=== PATIENT | female | born 1965 | race Caucasian/White ===

== ENCOUNTER → 2023-12-10 11:37 | Outpatient (REF) | payer BC, SELFPAY | LOC: WDC 11:37 | DX: R92.8 Other abnormal and inconclusive findings on diagnostic imaging of breast (principal) | CPT/HCPCS: 77062; 77066 ==

== ENCOUNTER → 2024-05-01 16:34 | Outpatient (REF) | payer BC, SELFPAY | LOC: UCDH 16:34 | PROVIDERS: ATTENDING PHYSICIAN Physician Assistant Medical | DX: R07.81 Pleurodynia (principal) | CPT/HCPCS: 71101 ==

== ENCOUNTER 2024-05-09 15:52 | Emergency (ER) | payer BC, SELFPAY ==
[2024-05-09 16:00] VITALS: BP 148/89
[2024-05-09 16:31] VITALS: BMI 23.7
[2024-05-09] MEDS: NSS 500 IV (17:22)
[2024-05-09 17:38] LABS: % Basophils 0.4 % (0-2); % Eosinophils 0.7 % (0-6); % Immature Granulocytes 0.3 % (0-0.5); % Lymphocytes 25.2 % (20.5-51.1); % Monocytes 7.3 % (1.7-9.3); % Neutrophils 66.1 % (42.2-75.2); Absolute Eosinophils 0.1 10^3/uL (0-0.7); Absolute Lymphocytes 2.6 10^3/uL (1.2-3.4); Absolute Monocytes 0.7 10^3/uL (0.1-0.6); Absolute Neutrophils 6.8 10^3/uL (1.4-6.5); Hematocrit 34.8 % (37.0-47.0); Hemoglobin 11.9 g/dL (12.0-16.0); Mean Corp Hgb Conc. 34.2 g/dL (33.0-37.0); Mean Corpuscular Hgb 29.5 pg (27.0-31.0); Mean Corpuscular Volume 86.1 fL (81.0-99.0); Mean Platelet Volume 9.5 fL (7.4-10.4); Nucleated Red Blood Cells % 0 %; Platelet Count 262 10^3/uL (130-400); Red Blood Cell Count 4.04 10^6/uL (4.20-5.40); Red Cell Dist. Width 12.7 % (11.5-14.5); White Blood Cell Count 10.2 10^3/uL (4.8-10.8)
[2024-05-09 17:52] LABS: Blood Urea Nitrogen 19 mg/dl (7-17); Calcium 8.9 mg/dl (8.4-10.2); Carbon Dioxide 27 mmol/L (22-30); Chloride 98 mmol/L (98-107); Estimated Creatinine Clearance 73 ml/min; Glucose 98 mg/dl (70-99); Potassium 3.9 mmol/L (3.5-5.1); Sodium 131 mmol/L (135-145); eGFR > 60.00
--- NOTE | 2024-05-09 18:14 | ED.GENMED ---
History of Present Illness
General
Chief Complaint: Eye Problems
Source: patient
Exam Limitations: none
Time Seen by Provider: 05/09/24 16:34
History of Present Illness
History of Present Illness:
59-year-old female had breast surgery done yesterday to replaced her implants. Today this afternoon she noted a irregular size to her right pupil. She has no pain in the eye no visual issues. She does wear contact lens in that eye. She has no
headache neck pain neurologic symptoms double vision etc. The family thinks the eye appeared normal this morning and early afternoon
Past History
Past History
ED Past Medical History: None
ED Past Surgical History: Cholecystectomy, and Other (Varicose vein, lumpectomy, breast augmentation/reconstruction)
Social History
Tobacco: Non-smoker
Alcohol: Occasional
Drug: None
Personal:
Living: with family
Employment: Employed
Family History
Family History: CAD and Sudden
Review of Systems
Review of Systems
All Other Systems: Not applicable
Constitutional: Denies fever or chills
Neurological: Reports no symptoms
Phy Exam
Physical Exam
Physical Exam:
GENERAL: Alert and oriented in no apparent distress
EYE: Large right pupil. Minimal reaction. Extraocular muscles intact. No double vision.
NECK: Supple, no carotid bruit
ENT: Pharynx without erythema
CARDIAC: Regular rate and rhythm without any obvious murmurs.
LUNGS: Clear breath sounds,normal
ABDOMEN: Soft, without focal tenderness or distention
NEUROLOGICAL: Alert and oriented , grossly non-focal
SKIN: Warm and dry
PSYCH: Normal and appropriate interaction.
Course
Orders/Labs/Results
Orders:
Orders
05/09/24 17:12
CT Head & Neck Angio W/wo IV Urgent
Comment:
Reason For Exam: Anisocoria. Dilated right pupil
IV Insert/Care/Rem.- Treatment PRN
0.9% Sodium Chloride 500 ml [Nss] 500 ml IV BOLUS
05/09/24 17:20
Basic Metabolic Panel Urgent
Complete Blood Count/With Diff Urgent
Abnormal Lab Results
05/09/24
17:20
RBC 4.04 L 10^6/uL
(4.20-5.40)
Hgb 11.9 L g/dL
(12.0-16.0)
Hct 34.8 L %
(37.0-47.0)
Absolute Neuts (auto) 6.8 H 10^3/uL
(1.4-6.5)
Absolute Monos (auto) 0.7 H 10^3/uL
(0.1-0.6)
Sodium 131 L mmol/L
(135-145)
BUN 19 H mg/dl
(7-17)
05/09/24 17:20
05/09/24 17:20
Vital Signs
Initial and Last Documented VS:
Initial Vital Signs
Temp Pulse Resp BP Pulse Ox
99.1 F 80 18 148/89 99
05/09/24 16:00 05/09/24 16:00 05/09/24 16:00 05/09/24 16:00 05/09/24 16:00
Last Documented Vital Signs
Temp Pulse Resp BP Pulse Ox
99.1 F 80 18 148/89 99
05/09/24 16:00 05/09/24 16:00 05/09/24 16:00 05/09/24 16:00 05/09/24 16:00
MDM/Problems Addressed
Differential Diagnosis Includes:
Discussed with neurology. Given the totally benign exam and lack of symptoms and chronologically having the general surgery within 24 hours this was likely related to that and possibly medication got in her right eye. However given that the family
is confident that this did not occur this morning or even early afternoon, we will do a CT angiography.
*Radiology
Radiology exam reviewed: radiology read reviewed (No acute findings. Plaque. Hypoplastic right vertebral artery. Moderate left maxillary sinusitis)
*Pulse Oximetry
Patient hypoxic: no
*Critical Care Note
Total Time (30-74mins, 75-104mins- exclusive of procedures): Not Applicable
Update Note
Update Note:
No acute issues to explain patient's anisocoria. Neurologic exam within normal limits. I actually think this mildly improved. Outpatient observation and follow-up
ED Attending Note
-
Portions of this chart may have been created with voice recognition software.� Occasional wrong word or��sound alike� substitutions may have occurred due to the inherent limitations of voice recognition software.
Discharge Plan
Departure
Patient Disposition: Home (Routine Discharge)
Date of Disposition: 05/09/24
Time of Disposition: 20:02
Patient with high blood pressure during this ER visit?: Yes
Discharge Problem:
Anisocoria right eye, Incidental left maxillary sinusitis, Recent breast surgery
Instructions: BLOOD PRESSURE
Prescriptions:
No Action
venlafaxine [Effexor XR] 75 mg Capsule,Extended Release 24hr
75 mg PO HS
lisinopril 10 mg Tablet
10 mg PO DAILY Qty: 90 3RF
Referrals:
NONE,* [Family Provider] -
Activity Restrictions/Additional Instructions:
Follow-up closely with your primary physician
Recheck immediately if you develop any other symptoms associated with this� Including severe headache visual issues double vision numbness tingling weakness etc. To consider reevaluation in the next 2 to 4 days if symptoms do not totally resolve
Interventions
Interventions:
*Risk Screen - Suicide Last Done: 05/09/24 16:31
*General Assessment Last Done: 05/09/24 16:31
*Neglect/Abuse Screening Last Done: 05/09/24 16:31
ED- Fall Risk Assessment Last Done: 05/09/24 16:31
*ED COVID-19 Vaccine History Last Done: 05/09/24 16:31
Discharge Date and Time
Print Language: [id number]
[2024-05-09 20:25] VITALS: BP 146/77
== END 2024-05-09 20:35 | disposition home or self-care (01) ==
LOC: EMR 15:52
PROVIDERS: EMERGENCY PHYSICIAN Emergency Medicine
DX: H57.02 Anisocoria (principal); J32.0 Chronic maxillary sinusitis; Z82.49 Family history of ischemic heart disease and other diseases of the circulatory system; Z90.49 Acquired absence of other specified parts of digestive tract
CPT/HCPCS: 99284; 96360; 70496; 70498; 80048; 85025; Q9967

== ENCOUNTER → 2024-11-01 10:02 | Outpatient (REF) | payer BC, SELFPAY | LOC: HWRAD 10:02 | PROVIDERS: ATTENDING PHYSICIAN Internal Medicine | DX: N95.0 Postmenopausal bleeding (principal) | CPT/HCPCS: 76830; 76856 ==